=== PATIENT | female | born 1980 | race Two or more races ===

== ENCOUNTER 2021-11-14 14:20 | Outpatient (REF) | payer MEDICAID, SELFPAY ==
--- NOTE | ~2021-11-14 | XR_ITS ---
EXAMINATION: XR CHEST CLINICAL INFORMATION: Dyspnea with sudden onset shortness of breath. COMPARISON: None TECHNIQUE: 2 views of the chest were obtained. FINDINGS: Normal appearance of the cardiomediastinal silhouette. No focal airspace opacities, pleural effusions or pneumothorax. Right upper quadrant surgical clips are seen. No acute osseous abnormalities. XR/XR chest 2V IMPRESSION: No acute cardiopulmonary findings.
== END 2021-11-14 14:21 | disposition home or self-care (01) ==
LOC: HO.XRAY 14:20
PROVIDERS: Visit Provider Emergency Medicine
DX: R06.00 Dyspnea, unspecified (principal)
CPT/HCPCS: 71046

== ENCOUNTER 2022-03-29 11:51 | Outpatient (REF) | payer MEDICAID, SELFPAY ==
--- NOTE | 2022-03-29 10:00 | EMG_ITS ---
Left median and ulnar motor and sensory studies were performed. Left radial sensory study was performed and paraspinal muscles were tested with a needle. IMPRESSION: 1. [id number] left median neuropathy across carpal tunnel. 2. Mild left ulnar neuropathy across cubital tunnel. MD FRANCK Tee/SOLO / [id number]
== END 2022-03-29 11:52 | disposition home or self-care (01) ==
LOC: HO.NEURO 11:51
PROVIDERS: Visit Provider Nurse Practitioner
DX: M54.2 Cervicalgia (principal); R20.0 Anesthesia of skin; R10.32 Left lower quadrant pain; R19.7 Diarrhea, unspecified
CPT/HCPCS: 95886; 95909

== ENCOUNTER 2022-06-19 16:04 | Outpatient (REF) | payer MEDICAID, SELFPAY ==
--- NOTE | ~2022-06-19 | XR_ITS ---
EXAMINATION: XR CERVICAL SPINE CLINICAL INFORMATION: Left radiculopathy at C5-6 COMPARISON: None TECHNIQUE: 6 views of the cervical spine, inclusive of flexion and extension views, were obtained. FINDINGS: The dens is intact. The lateral masses are normally positioned. Lung apices are clear. Normal prevertebral soft tissues. There is multilevel loss of disc height C3-4 through C7-T1. 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 Oblique views are limited by the altered anatomy but there is osseous neuroforaminal narrowing in the mid and lower cervical spine bilaterally. Severe left greater than right multilevel facet arthropathy. 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 Recommend cervical MRI for further evaluation.
== END 2022-06-19 16:05 | disposition home or self-care (01) ==
LOC: HO.XRAY 16:04
PROVIDERS: PCP Family Medicine; Visit Provider Family Medicine
DX: S46.812A Strain of other muscles, fascia and tendons at shoulder and upper arm level, left arm, initial encounter (principal)
CPT/HCPCS: 72050

== ENCOUNTER 2022-07-18 11:14 | Outpatient (REF) | payer MEDICAID, SELFPAY ==
--- NOTE | ~2022-07-18 | XR_ITS ---
EXAMINATION: XR SHOULDER, LEFT CLINICAL INFORMATION: Reason for Exam PAIN QUESTION IMPINGEMENT COMPARISON: None TECHNIQUE: Four views of the shoulder. FINDINGS: No acute fracture or dislocation. Joint spaces are maintained without significant degenerative change. Soft tissues are unremarkable. XR/XR shoulder LT min 2V IMPRESSION: * No acute osseous abnormality.
== END 2022-07-18 11:15 | disposition home or self-care (01) ==
LOC: HO.XRAY 11:14
PROVIDERS: Visit Provider Physical Medicine & Rehabilitation
DX: M25.512 Pain in left shoulder (principal)
CPT/HCPCS: 73030

== ENCOUNTER 2022-08-02 17:00 | Outpatient (RCR) | payer MEDICAID, SELFPAY | END 2022-09-05 11:25 | disposition home or self-care (01) | LOC: HO.PT 17:00 | PROVIDERS: PCP Family Medicine; Visit Provider Family Medicine | DX: S46.812D Strain of other muscles, fascia and tendons at shoulder and upper arm level, left arm, subsequent encounter (principal); M54.2 Cervicalgia | CPT/HCPCS: 97110; 97140; 97162 ==

== ENCOUNTER 2022-08-03 11:26 | Outpatient (REF) | payer MEDICAID, SELFPAY ==
--- NOTE | ~2022-08-03 | MR_ITS ---
EXAMINATION: MR CERVICAL SPINE WITHOUT CONTRAST CLINICAL INFORMATION: Worsening pain. Left neck radiculopathy. COMPARISON: Plain films of the cervical spine 06/19/2022. TECHNIQUE: MRI of the cervical spine was obtained using routine sequences without contrast. FINDINGS: VERTEBRAL BODIES AND PARASPINAL SOFT TISSUES: There is a rotatory dextroscoliosis in the lower cervical spine, and there is a levoscoliosis in the upper thoracic spine. There is a mild retrolisthesis C3 on C4 and there are anterolistheses of C5 on C6 and C6 on C7. There is partial fusion of the bodies of T1, T2 and T3, incompletely visualized on the available images. The AP dimensions of the T2 and T3 vertebral bodies are narrower relative to the adjacent vertebrae. There are no compression fractures. There are degenerative endplate contour changes at multiple levels. There is a focus of low signal on all sequences in the body of C5 corresponding to likely cysts demonstrated on the plain films. There is mild edematous signal in the C6-C7 facet joints on the left. Overall, marrow signal is homogenous. The regional soft tissues are unremarkable. CERVICOMEDULLARY JUNCTION AND VISUALIZED POSTERIOR FOSSA: The craniocervical and posterior fossa structures are normal. There is slight prominence of the central canal of the spinal cord in the lower cervical region with maximum caliber of 1.2 mm at the level of C7. Otherwise, accounting for artifact, spinal cord signal appears normal. SPINAL LEVELS: C2-C3: There is moderate left and mild right facet arthropathy. Posterior disc contour is normal and there is no cord compression or central stenosis. The neural foramina are patent bilaterally. C3-C4: There is moderate right and mild left facet arthropathy. There is a broad-based posterior disc protrusion with mild effacement of CSF ventral to the spinal cord, but there is no cord compression or central stenosis. There are uncovertebral osteophytes and there is moderate bilateral foraminal narrowing. C4-C5: There is moderate right facet arthropathy. There is a central left-sided disc protrusion with minimal distortion the ventral thecal sac and there is no cord compression or central stenosis. There are uncovertebral osteophytes and there is moderate right foraminal narrowing. C5-C6: There is moderate left facet arthropathy. The right facet joint appears dysplastic. There is a broad-based posterior disc protrusion with some effacement of CSF ventral to the cord without cord compression. There is mild central stenosis. There are uncovertebral osteophytes and there is severe bilateral foraminal narrowing. C6-C7: There is severe left facet arthropathy. The right facet joint appears dysplastic. There is a broad-based posterior disc protrusion with some effacement of CSF ventral to the cord, but there is no central stenosis or cord compression. There are uncovertebral osteophytes and there is severe left foraminal narrowing. C7-T1: There is mild left facet arthropathy. Posterior disc contour is normal and there is no central stenosis or cord compression. The neural foramina are patent bilaterally. MR/MR cervical spine wo con IMPRESSION: 1. At C5-C6 there is facet arthropathy and there is a broad-based posterior disc protrusion without cord compression. There is mild central stenosis. There is severe bilateral foraminal narrowing. 2. At C6-C7 there is severe left facet arthropathy. There is a broad-based posterior disc protrusion without cord compression or central stenosis. There is severe left foraminal narrowing. 3. At C3-C4 there is facet arthropathy and there is a broad-based posterior disc protrusion. There is no cord compression or central stenosis. There is moderate bilateral foraminal narrowing. 4. There is partial fusion of the bodies of T1, T2 and T3. The right facet joints appear dysplastic at the levels of C5-C6 and C6-C7. These osseous changes could be further evaluated with CT scan of the cervical spine.
== END 2022-08-03 11:27 | disposition home or self-care (01) ==
LOC: HO.MRI 11:26
PROVIDERS: PCP Family Medicine; Visit Provider Emergency Medicine
DX: M54.2 Cervicalgia (principal)
CPT/HCPCS: 72141

== ENCOUNTER 2023-01-28 12:07 | Outpatient (REF) | payer MEDICAID, SELFPAY ==
--- NOTE | ~2023-01-28 | MM_ITS ---
EXAMINATION: MM SCREENING DIGITAL BREAST TOMOSYNTHESIS, BILATERAL CLINICAL INFORMATION: Screening. Asymptomatic. COMPARISON: Mammography: This is a baseline mammogram. TECHNIQUE: Digital breast tomosynthesis is performed in both the craniocaudal and mediolateral oblique views along with computer-aided detection (CAD). Synthesized 2D images are generated from the tomosynthesis. FINDINGS: There are scattered areas of fibroglandular density (ACR BI-RADS breast composition Category b). There are no significant masses, abnormal calcifications, or other abnormalities. MM/MM tomosynthesis screening BI IMPRESSION: No mammographic evidence of malignancy. ASSESSMENT: BI-RADS BI-RADS 1 - Negative RECOMMENDATION: Routine annual mammography screening. 1 year F/U This examination should not preclude the clinical evaluation of a suspicious palpable abnormality. This patient's information was entered into a reminder system with a target due date for their next mammogram.
== END 2023-01-28 12:08 | disposition home or self-care (01) ==
LOC: HO.MAMMO 12:07
PROVIDERS: PCP Family Medicine; Visit Provider Family Medicine
DX: Z12.31 Encounter for screening mammogram for malignant neoplasm of breast (principal)
CPT/HCPCS: 77063; 77067

== ENCOUNTER → 2023-01-28 13:00 | Outpatient (BNV) | payer MEDICAID, SELFPAY | PROVIDERS: PCP Family Medicine; Visit Provider Radiology Diagnostic Radiology | DX: Z12.31 Encounter for screening mammogram for malignant neoplasm of breast (principal) | CPT/HCPCS: 77063; 77067 ==